=== PATIENT | male | born 1975 | race Caucasian/White ===

== ENCOUNTER 2017-08-10 22:38 | Emergency (ER) | payer OTHER ==
[~2017-08-10] VITALS: Ht 177.8 cm; Wt 74.8 kg
[2017-08-10 22:40] VITALS: BP 125/72
--- NOTE | 2017-08-11 00:41 | NUR ---
CALLED PT NAME TO ROOM X3. NO RESPONSE. PER ADMITTING PT LEFT.
== END 2017-08-11 00:41 | disposition left against medical advice (07) ==
LOC: ER 23:07
DX: Z53.21 Procedure and treatment not carried out due to patient leaving prior to being seen by health care provider (principal)
CPT/HCPCS: A4606; Z7610